=== PATIENT | female | born 1960 | race Caucasian/White ===

== ENCOUNTER 2018-10-12 19:30 | Emergency (ER) | payer BC ==
--- NOTE | 2018-10-12 19:56 | Emergency Department Record ---
History of Present Illness - General Chief Complaint: Back Pain/Injury Stated Complaint: BACK PAIN Time Seen by Provider: 10/12/18 19:39 Source: Patient, Family Mode of Arrival: Ambulatory Limitations: No limitations - History of Present Illness Initial Comments: 58 yo female presents with back pain for 3 weeks. She has seen her PCP for the pain. The pain started on September 26 unloading her car. The pain is located in the left lower back/ glutteal area and radiates down the leg to the foot. The pain follows the lateral aspect of the leg. No numbness or tingling. The pain follows the lateral leg to the foot. No foot drop. No weakness. No swelling. No coolness or paleness. No abnormal redness or warmth. No dysuria. No abdominal pain. No fever. He doctor has tried Toradol, Medrol, and Aurora for 7 days. She had Xrays. She is not improved. She has a history of RA. She has had prior back surgery in 2013 with rods placed. MD Complaint: Back pain, Back injury -: Week(s) Place: Home Radiation: Left leg Severity: Severe Quality: Aching, Sharp Consistency: Constant Improves With: None Worsens With: Movement, Walking Context: Other Associated Symptoms: Denies other symptoms - Related Data Home Medications Medication Instructions Recorded Confirmed Last Taken Methotrexate Sodium [Trexall] mg PO ASDIR 10/12/18 Unknown Previous Rx's Medication Instructions Recorded Hydrocodone/APAP 5/325Mg [Aurora 1 each PO Q6H #12 tab 10/12/18 5Mg/325Mg] Allergies Allergy/AdvReac Type Severity Reaction Status Date / Time sulfamethoxazole AdvReac RASH Verified 10/12/18 19:50 [From Bactrim] trimethoprim [From Bactrim] AdvReac RASH Verified 10/12/18 19:50 Review of Systems Constitutional: Denies: Chills, Fever, Malaise, Weakness Eyes: Denies: Eye discharge ENT: Denies: Congestion, Throat pain Respiratory: Denies: Cough, Dyspnea Cardiovascular: Denies: Chest pain, Palpitations, Syncope Endocrine: Denies: Fatigue, Polydipsia, Polyuria Gastrointestinal: Denies: Abdominal pain, Diarrhea, Nausea, Vomiting Genitourinary: Denies: Dysuria, Frequency, Hematuria, Incontinence, Retention, Urgency Skin: Denies: Bruising, Change in color, Rash Neurological: Denies: Abnormal gait, Confusion, Headache, Numbness, Paresthesias, Seizure, Tingling, Tremors, Vertigo, Weakness Psychiatric: Denies: Anxiety Hematological/Lymphatic: Denies: Easy bleeding, Easy bruising Physical Exam - General General Appearance: Alert, Oriented x3, Cooperative, No acute distress Limitations: No limitations - Head Head exam: Atraumatic, Normal inspection - Eye Eye exam: Normal appearance, PERRL. negative: Conjunctival injection, Scleral icterus - ENT ENT exam: Normal exam, Mucous membranes moist Ear exam: Normal external inspection Nasal Exam: Normal inspection Mouth exam: Normal external inspection - Neck Neck exam: Normal inspection, Full ROM. negative: Tenderness - Respiratory Respiratory exam: Normal lung sounds bilaterally. negative: Respiratory distress - Cardiovascular Cardiovascular Exam: Regular rate, Normal rhythm, Normal heart sounds - GI/Abdominal GI/Abdominal exam: Soft, Normal bowel sounds. negative: Distended, Guarding, Pulsatile mass - Rectal Rectal exam: Deferred - exam: Deferred - Extremities Extremities exam: Normal inspection, Full ROM, Normal capillary refill, Tenderness, Other (Foot flexion intact, EHL intact, normal inspection of the l eft foot, calf, knee, and thigh). negative: Calf tenderness, Joint swelling, Pedal edema Image of Full Body: 1 - tender to palpation - Back Back exam: Reports: Paraspinal tenderness, Tenderness (lower lumbar, sacral). Denies: CVA tenderness (R), CVA tenderness (L), Rash noted, Vertebral tenderness - Neurological Neurological exam: Alert, Normal gait, Oriented X3, Reflexes normal. negative: Abnormal gait, Altered, CN II-XII intact, Motor sensory deficit - Psychiatric Psychiatric exam: Normal affect, Normal mood. negative: Agitated, Anxious - Skin Skin exam: Dry, Intact, Normal color, Warm Course Vital Signs 10/12/18 19:37 Temperature 98.2 F Pulse Rate [ 112 H Left] Respiratory 20 Rate Blood Pressure 139/96 [Left Arm] Pulse Ox 96 - Reevaluation(s) Reevaluation #1: The vitals were reviewed The patient has lower lumbar tenderness with pain down the left left following the lateral leg only highly suggest radicular in nature No weakness, no numbness, no foot drop Strong DP and PT pulses. No calf tenderness. 10/12/18 20:18 10/12/18 20:43 Recheck the pain is better controlled. Waiting for the radiology report at this time The CT result was reviewed Multi level degenerative changes, NO abnormal changes at the surgical sight, multi level foraminal narrowing. Worst at L4-5 10/12/18 21:14 We discussed the results of the tests and questions were answered at the time of discharge. The patient is doing well and is comfortable with DC. DC vitals were reviewed. We discussed at length reasons to immediately return to the ED as well as close follow up and likely MRI The patient will call the PCP for close follow up of this ED visit to review this visit and the tests performed The patient was prescribed a controlled substance. The prescription does not exceed three days. MAPS was reviewed at the time of the prescripts The topics of abuse, addiction, over dose, dangers of multiple medications, disposal, and illegal distribution were discussed with the patient. The patient verbalized understanding of the risks of the medication being provided Disposition Disposition: Discharge Clinical Impression: Radicular leg pain Disposition: Home, Self-Care Condition: (1) Good Instructions: Lumbar Radiculopathy (ED) Additional Instructions: Call your doctor for the next available follow up appointment this week Review this ER visit and the tests performed with your family doctor You may need further testing or MRI if the pain continues Take the prescriptions provided as directed Prescriptions: Hydrocodone/APAP 5/325Mg [Aurora 5Mg/325Mg] 1 each PO Q6H #12 tab Forms: Patient Portal Access Time of Disposition: 21:13 Quality - Quality Measures Quality Measures: N/A - Blood Pressure Screening Does Patient Have Any of the Following: Active Dx of HTN Blood Pressure Classification: Pre-Hypertensive BP Reading Systolic Measurement: 164 Diastolic Measurement: 81 Screening for High Blood Pressure: Patient Exclusion, Hx of HTN [G9744]
[2018-10-12] MEDS ORDERED: MORPHINE SULFATE 10MG/1ML **1ML VIAL IM ONE (20:04)
[2018-10-12] MEDS ORDERED: HYDROCODONE/APAP 7.5/325MG TABLET PO ONE (21:13)
--- NOTE | 2018-10-13 10:43 | CT SCAN REPORT ---
EXAM: CT OF THE LUMBAR SPINE WITHOUT CONTRAST HISTORY: CONSTANT LOWER BACK PAIN RADIATING DOWN LEFT LEG, UNKNOWN INJURY. TECHNIQUE: Standard CT imaging of the lumbar spine without contrast was obtained. 3D reformatted images are created on an independent workstation. Comparison: None. FINDINGS: There are four non-rib bearing lumbar type vertebral bodies with a transitional lumbosacral vertebral body labeled L5 for the purposes of this report with a rudimentary disk at L5-S1. Status post posterior fusion with bilateral pedicle screws and fixation rods at L4-L5. A disk spacer is present at this level. There is Grade 1 anterolisthesis of L4 on L5 without prior imaging available for comparison. No significant lucency around the pedicle screws. Otherwise, alignment and vertebral body heights are maintained. There has also been laminectomy at L4 and L5. The remaining disk spaces are preserved. Facet hypertrophy and degenerative changes causes mild neural foraminal stenosis bilaterally at L3-L4, and moderate to severe neural foraminal stenosis bilaterally at L4-L5. The spinal canal is unremarkable to the L3 level and is not well evaluated at L4 and L5 due to beam hardening and streak artifact from the hardware. The paraspinal soft tissues are unremarkable. The gallbladder has been resected. There is sigmoid diverticulosis. IMPRESSION: DEGENERATIVE AND POST SURGICAL CHANGES IN THE LOWER LUMBAR SPINE, ABOVE. THE SPINAL CANAL WOULD BE BETTER EVALUATED WITH MRI. JOB NUMBER: [id number] [facility]
== END 2018-10-12 21:27 | disposition home or self-care (01) ==
LOC: ER 19:30
DX: M54.16 Radiculopathy, lumbar region (principal); M79.652 Pain in left thigh; I10 Essential (primary) hypertension
CPT/HCPCS: 99284 ×2; 96372; 72131; J2270

== ENCOUNTER 2018-10-26 10:35 | Emergency (ER) | payer BC ==
--- NOTE | 2018-10-26 11:28 | Emergency Department Record ---
History of Present Illness - General Chief complaint: Lower Extremity Pain Stated complaint: LEFT LEG PAIN Time Seen by Provider: 10/26/18 11:07 Source: Patient Mode of Arrival: Ambulatory Limitations: No limitations - History of Present Illness Initial comments: pt has had pain in the lateral aspect of her l calf for 5 wks. nothing makes it better or worse MD Complaint: Extremity pain Onset/Timin -: Week(s) Location: Left, Lower Leg Radiation: Distal Improves with: Nothing Worsens with: Nothing Associated Symptoms: Denies other symptoms - Related Data Previous Rx's Medication Instructions Recorded Hydrocodone/APAP 5/325Mg [Dwarf 1 each PO Q6H #12 tab 10/12/18 5Mg/325Mg] Allergies Allergy/AdvReac Type Severity Reaction Status Date / Time sulfamethoxazole AdvReac RASH Verified 10/26/18 10:51 [From Bactrim] trimethoprim [From Bactrim] AdvReac RASH Verified 10/26/18 10:51 Travel Screening - Travel/Exposure Within Last 30 Days Have you traveled within the last 30 days?: No Review of Systems Reviewed: No additional complaints except as noted below Constitutional: Reports: As per HPI. Denies: Chills, Fever, Malaise, Night sweats, Weakness, Weight change Eyes: Reports: As per HPI. Denies: Eye discharge, Eye pain, Photophobia, Vision change ENT: Reports: As per HPI. Denies: Congestion, Dental pain, Ear pain, Epistaxis, Hearing loss, Throat pain Respiratory: Reports: As per HPI. Denies: Cough, Dyspnea, Hemoptysis, Stridor, Wheezes Cardiovascular: Reports: As per HPI. Denies: Arrhythmia, Chest pain, Dyspnea on exertion, Edema, Murmurs, Orthopnea, Palpitations, Paroxysmal nocturnal dyspnea, Rheumatic Fever, Syncope Endocrine: Reports: As per HPI. Denies: Fatigue, Heat or cold intolerance, Polydipsia, Polyuria Gastrointestinal: Reports: As per HPI. Denies: Abdominal pain, Constipation, Diarrhea, Hematemesis, Hematochezia, Melena, Nausea, Vomiting Genitourinary: Reports: As per HPI. Denies: Abnormal menses, Discharge, Dyspareunia, Dysuria, Frequency, Hematuria, Incontinence, Retention, Urgency Musculoskeletal: Reports: As per HPI. Denies: Arthralgia, Back pain, Gout, Joint swelling, Myalgia, Neck pain Skin: Reports: As per HPI. Denies: Bruising, Change in color, Change in hair/nails, Lesions, Pruritus, Rash Neurological: Reports: As per HPI. Denies: Abnormal gait, Confusion, Headache, Numbness, Paresthesias, Seizure, Tingling, Tremors, Vertigo, Weakness Psychiatric: Reports: As per HPI. Denies: Anxiety, Auditory hallucinations, Depression, Homicidal thoughts, Suicidal thoughts, Visual hallucinations Hematological/Lymphatic: Reports: As per HPI. Denies: Anemia, Blood Clots, Easy bleeding, Easy bruising, Swollen glands Past Medical History - SOCIAL HISTORY Smoking Status: Light tobacco smoker (<10/day) Alcohol Use: None Drug Use: None - RESPIRATORY Hx Respiratory Disorders: No - CARDIOVASCULAR Hx Cardio Disorders: No - NEURO Hx Neuro Disorders: No - GI Hx GI Disorders: No - Hx Genitourinary Disorders: No - ENDOCRINE Hx Endocrine Disorders: No - MUSCULOSKELETAL Hx Musculoskeletal Disorders: Yes Hx Arthritis: Yes (RA) - PSYCH Hx Psych Problems: No - HEMATOLOGY/ONCOLOGY Hx Hematology/Oncology Disorders: No Family Medical History Any Significant Family History?: Yes Hx Cancer: Father Hx Diabetes: Mother Hx Heart Disease: Mother Hx Stroke: Mother Physical Exam - General General Appearance: Alert, Oriented x3, Cooperative, No acute distress - Head Head exam: Normal inspection - Eye Eye exam: Normal appearance, PERRL, EOMI Pupils: Normal accommodation - ENT ENT exam: Normal exam, Mucous membranes moist, Normal external ear exam, Normal orophraynx Ear exam: Normal external inspection. negative: External canal tenderness Nasal Exam: Normal inspection. negative: Discharge, Sinus tenderness Mouth exam: Normal external inspection, Tongue normal Teeth exam: Normal inspection. negative: Dental caries Throat exam: Normal inspection. negative: Tonsillar erythema, Tonsillar exudate - Neck Neck exam: Normal inspection, Full ROM. negative: Tenderness - Respiratory Respiratory exam: Normal lung sounds bilaterally. negative: Respiratory distress - Cardiovascular Cardiovascular Exam: Normal rhythm, Normal heart sounds, Tachycardia - GI/Abdominal GI/Abdominal exam: Soft, Normal bowel sounds. negative: Tenderness - Rectal Rectal exam: Deferred - exam: Deferred - Extremities Extremities exam: Full ROM, Normal capillary refill, Tenderness Image of Full Body: 1 - tender - Back Back exam: Reports: Normal inspection, Full ROM. Denies: Muscle spasm, Rash noted, Tenderness - Neurological Neurological exam: Alert, Normal gait, Oriented X3, Reflexes normal - Psychiatric Psychiatric exam: Normal affect, Normal mood - Skin Skin exam: Dry, Intact, Normal color, Warm Course Vital Signs 10/26/18 10:43 Temperature 97.8 F Pulse Rate 116 H Respiratory 22 Rate Blood Pressure 147/66 Pulse Ox 97 - Reevaluation(s) Reevaluation #1: 10/26/18 12:39 xray and doppler are neg Disposition Disposition: Discharge Clinical Impression: Leg pain Qualifiers: Laterality: left Qualified Code(s): M79.605 - Pain in left leg Radiculopathy Qualifiers: Spinal region: lumbosacral Qualified Code(s): M54.17 - Radiculopathy, lumbosacral region Disposition: Home, Self-Care Condition: (1) Good Instructions: Lumbar Radiculopathy (ED) Additional Instructions: follow up with family doctor. return sooner if worse. motrin with food Forms: Patient Portal Access Quality - Quality Measures Quality Measures: N/A - Blood Pressure Screening Does Patient Have Any of the Following: No Blood Pressure Classification: Hypertensive Reading Systolic Measurement: 147 Diastolic Measurement: 66 Screening for High Blood Pressure: < First Hypertensive BP, F/U Documented > [G8950] First Hypertensive Follow-up Interventions: Follow-up with rescreen GT 1 day and LT 4 weeks.
[2018-10-26] MEDS: HYDROCODONE/APAP 5/325MG TABLET PO ONE (12:59)
--- NOTE | 2018-10-27 12:24 | US VENOUS DOPPLER REPORT ---
EXAM: LEFT LOWER EXTREMITY VENOUS DOPPLER ULTRASOUND HISTORY: SEVERE LEFT LOWER LEG PAIN. TECHNIQUE: Bear scale, color Doppler and Duplex Doppler evaluation of the deep venous structures of the left lower extremity were performed from the level of the external iliac vein through the calf veins. Imaging of the external iliac, common femoral, and greater saphenous veins on the right were also performed. Comparison: Same day radiographic examination of the left lower leg. FINDINGS: On the left, the external iliac, common femoral, deep femoral, greater saphenous, superficial femoral, and popliteal veins are anechoic and completely compressible throughout. Normal venous waveforms are noted at all levels and these waveforms are augmentable. Bear scale and color Doppler imaging of the anterior tibial, posterior tibial, and peroneal veins on the left do not demonstrate thrombus. No evidence of deep venous thrombosis within the external iliac through greater saphenous vein on the right. IMPRESSION: NO EVIDENCE OF DEEP VENOUS THROMBOSIS WITHIN THE LEFT LOWER EXTREMITY. JOB NUMBER: [id number] [facility]TDD
--- NOTE | 2018-10-27 12:32 | RADIOLOGY REPORT ---
EXAM: LEFT LOWER LEG, TWO VIEWS HISTORY: SEVERE LOWER LEG PAIN ALONG LAIRD. NO KNOWN INJURY. TECHNIQUE: Upright AP and lateral views of the left tibia and fibula were obtained. Comparison: None. Encounter: Initial. FINDINGS: There is normal bone mineralization. No acute fracture is seen. No lytic or blastic bone lesion. There are tricompartmental osteoarthritic changes of the left knee most pronounced in the medial compartment where they are mild to moderate in degree. Mild degenerative changes of the tibiotalar joint also suspected. A small plantar calcaneal spur is present. There is mild enthesopathic calcification involving the distal Achilles tendon which appears mildly thickened. IMPRESSION: 1. NO ACUTE BONE NOR JOINT ABNORMALITY. 2. DEGENERATIVE CHANGES. 3. CALCANEAL SPURRING. JOB NUMBER: [id number] MTDD
== END 2018-10-26 13:15 | disposition home or self-care (01) ==
LOC: ER 10:35
DX: M79.662 Pain in left lower leg (principal); M54.17 Radiculopathy, lumbosacral region; F17.210 Nicotine dependence, cigarettes, uncomplicated
CPT/HCPCS: 99283